=== PATIENT | male | born 1945 | race Caucasian/White ===

== ENCOUNTER 2016-11-13 07:39 | Day surgery (SDC) | payer MEDICARE ==
[~2016-11-13] VITALS: Ht 172.7 cm; Wt 98.0 kg
--- NOTE | ~2016-11-13 | OR ---
ADMIT: 11/13/2016 RM/LOC: [facility] MR#: [id number] [address] [id number] JUVENAL SMALLWOOD [address] [place] [address] Operative/Delivery Room Report SEX: M AGE: 71 : 1945 SURGERY DATE: 11/13/2016 SURGEON: Juvenal Curiel MD PREOPERATIVE DIAGNOSIS: Black's esophagus with low-grade dysplasia. POSTOP DIAGNOSIS: Black's esophagus with low-grade dysplasia, fairly minimal, approximately 2 fingers, one was 2 cm and one with 1 cm in length. Each cm in width. PROCEDURE: EGD and RFA/Barrx ablation with the channel cath, 10 passes each time. INDICATION FOR PROCEDURE: Please see H and P. PROCEDURE IN DETAIL: After the risks, benefits, possible complications, and the alternatives have been explained, and informed consent had been obtained, the patient was taken back to the procedure room, underwent sedation. The flexible EGD scope was introduced. You can see in picture 1 from below, not a real large hiatal hernia, just kind of a patulous GE junction. Then up above nicely in picture #2 and 3, 3 with a narrow band imaging on and it shows just the two little kind of fingers basically of Black's esophagus and then there was one little spot above. After identifying this, taking pictures. I marked the GLADYS at 40, TGF at 43 to 42, washed it with Mucomyst. I pulled the scope back out, placed the cap on, used a channel cath. 10 ablations the first time and then scraped all the coagulum off with the cap, cleaned it off, pulled the channel cath out, is wiped off. Placed back down the channel and again was ablated to 10 ablation is on the second pass. The procedure was terminated. The scope was removed. He tolerated it well, was taken to recovery room in stable and satisfactory condition. Juvenal Curiel MD/ diane JOB #: [id number] CC: Juvenal Curiel, Attending Physician Catherine Biggs, Family Physician
--- NOTE | 2016-12-08 12:20 | HP ---
ADMIT: 11/13/2016 RM/LOC: [facility] MR#: [id number] [facility] [address] [place] [id number] MAMADOU SMALLWOOD [address] [place] [address] Pre-OP History and Physical SEX: M AGE: 71 : 1945 DATE OF SERVICE: HISTORY OF PRESENT ILLNESS: This patient is a 71-year-old male who has a short area of Black's esophagus, but the biopsy showed low-grade dysplasia, secondary to that plan is to do an EGD and repeat Barrx treatment on him. I have treated him one other time that was back on September 04, 2016. He understands the procedure risks and risks and benefits, possible complications, and alternatives. He wishes to proceed. MEDICATIONS: His medications have not changed significantly besides previously dictated H and P which include the same alprazolam, aspirin, fish oil, pantoprazole, prazosin, Proventil HFA, Refresh Optive Advanced, Restasis emulsion, Sertraline, Spiriva inhaler, Symbicort, Systane lid wipes, tamsulosin, timolol, vitamin C, and vitamin D3. PAST MEDICAL HISTORY: He has had detached retina, lens implant, PTSD as he is a [place] combat, glaucoma, Black's esophagus with low-grade dysplasia, some COPD, GERD, and history of cold intolerance. PAST SURGICAL HISTORY: He has had complete colonoscopy, cataract, and recent EGD with Barrx back in August. ALLERGIES: NO KNOWN DRUG ALLERGIES. SOCIAL HISTORY: No tobacco or smoker. Former smoker. Occasional EtOH. No illicit drugs. FAMILY HISTORY: Noncontributory. REVIEW OF SYSTEMS: Currently otherwise completely negative. PHYSICAL EXAMINATION: GENERAL: He is alert, he is oriented, he is in no acute distress. HEENT: His sclerae are nonicteric. Extraocular muscles are intact. CHEST: Clear anteriorly. No rhonchi or wheezes. HEART: Regular rate and rhythm without significant murmur. ABDOMEN: Soft. Positive bowel sounds. No mass. No organomegaly. No significant tenderness. ASSESSMENT AND PLAN: Esophagogastroduodenoscopy and Barrx. Mamadou Curiel MD/ diane JOB #: [id number] CC: Mamadou Curiel, Attending Physician UNKNOWN, Family Physician
== END 2016-11-13 12:58 | disposition home or self-care (01) ==
LOC: SSS 07:39
PROC: 0D558ZZ Destruction of Esophagus, Via Natural or Artificial Opening Endoscopic (ICD-10-PCS; principal; 2016-11-13)
DX: K22.710 Barrett's esophagus with low grade dysplasia (principal); J44.9 Chronic obstructive pulmonary disease, unspecified; K21.9 Gastro-esophageal reflux disease without esophagitis; F43.10 Post-traumatic stress disorder, unspecified; Z98.49 Cataract extraction status, unspecified eye; Z87.891 Personal history of nicotine dependence; Z98.890 Other specified postprocedural states

== ENCOUNTER 2017-01-15 08:30 | Day surgery (SDC) | payer MEDICARE ==
[~2017-01-15] VITALS: Ht 172.7 cm; Wt 96.4 kg
--- NOTE | 2017-01-15 13:29 | OR ---
ADMIT: 01/15/2017 RM/LOC: [facility] MR#: [id number] [facility] [address] [place], [place] [address] JUVENAL SMALLWOOD [address] [place] [address] Operative/Delivery Room Report SEX: M AGE: 71 : 1945 SURGERY DATE: 01/15/2017 SURGEON: Juvenal Curiel MD PREPROCEDURAL DIAGNOSIS: History of Black's with low-grade dysplasia. POSTOPERATIVE DIAGNOSIS: History of Black's with low-grade dysplasia. FINAL PATHOLOGY: Pending on biopsies. PROCEDURES: 1. EGD with biopsies. 2. Barrx ablation using the channel cath. ANESTHESIA: MAC anesthesia. ESTIMATED BLOOD LOSS: Less than 5 mL. INDICATION FOR PROCEDURE: Please see H and P. After the risks, benefits, possible complications, and the alternatives have been explained, and informed consent had been obtained, the patient was taken back to the procedure room, underwent sedation. The flexible EGD scope was introduced and you can see GLADYS was right at 40, TGF right at 42. You can see in picture 1 when you do narrow band imaging, not all that significant of changes there at the GE junction. I did do some biopsies, just to see what things were looking like. He had low- grade dysplasia before and then chose to use a channel catheterization. I washed with Mucomyst, placed channel cath down, ablated everything, scraped off, and then re-ablated with the channel cath. Very small area, like I said, it is approximately 2 cm x 1 cm at the most width. The scope and everything were removed and the procedure terminated. He tolerated it well. I will see him back in 6-8 weeks to go over biopsies. Juvenal Curiel MD/ diane JOB #: [id number] CC: Juvenal Curiel, Attending Physician Catherine Biggs, Family Physician
--- NOTE | 2017-01-16 14:43 | NUR ---
Received [facility] person referral. Attempted to contact pt via phone. No answer, voice mail message left.
--- NOTE | 2017-01-17 12:40 | NUR ---
Spoke with pt. States he tried to harm himself a year ago. [facility]. Denies current thoughts of self harm and denies a plan.
== END 2017-01-15 12:41 | disposition home or self-care (01) ==
LOC: SSS 08:30
PROC: 0D558ZZ Destruction of Esophagus, Via Natural or Artificial Opening Endoscopic (ICD-10-PCS; principal; 2017-01-15)
PROC: 0DB48ZX Excision of Esophagogastric Junction, Via Natural or Artificial Opening Endoscopic, Diagnostic (ICD-10-PCS; principal; 2017-01-15)
DX: K22.710 Barrett's esophagus with low grade dysplasia (principal); J44.9 Chronic obstructive pulmonary disease, unspecified; K21.9 Gastro-esophageal reflux disease without esophagitis; E66.9 Obesity, unspecified; F43.10 Post-traumatic stress disorder, unspecified; M19.90 Unspecified osteoarthritis, unspecified site; Z98.890 Other specified postprocedural states; Z79.899 Other long term (current) drug therapy; Z86.010 Personal history of colon polyps; Z87.891 Personal history of nicotine dependence